=== PATIENT | female | born 2000 | race African-American/Black ===

== ENCOUNTER 2024-12-10 22:53 | Inpatient (IN) | payer MEDICAID ==
[~2024-12-10] VITALS: Ht 167.6 cm; Wt 128.8 kg
[2024-12-11 03:40] VITALS: BP 122/77; PULSE 80; RESP 18; TEMP 97.2; O2SAT 100
[2024-12-11] MEDS ORDERED: ACETAMINOPHEN 325 MG TABLET PO PRN (08:30)
[2024-12-11] MEDS ORDERED: ONDANSETRON 4 MG TABLET PO PRN (08:30)
[2024-12-11] MEDS ORDERED: MAGNESIUM HYDROXIDE SUSPENSION 30 ML UDCUP PO PRN (08:30)
[2024-12-11] MEDS ORDERED: OMEPRAZOLE 20 MG CAPSULE PO PRN (08:30)
[2024-12-11] MEDS ORDERED: BACITRACIN 28 GM OINTMENT TP PRN (08:30)
[2024-12-11] MEDS ORDERED: DOCUSATE SODIUM 100 MG CAPSULE PO PRN (08:30)
[2024-12-11] MEDS ORDERED: PETROLATUM,WHITE 28 GM JELLY TP PRN (08:30)
[2024-12-11] MEDS ORDERED: BENZOCAINE/MENTHOL [CEPACOL] LOZENGE PO PRN (08:30)
[2024-12-11] MEDS ORDERED: LOPERAMIDE HCL 2 MG CAPSULE PO PRN (08:30)
[2024-12-11] MEDS ORDERED: MAG HYDROX/ALUMINUM HYD/SIMETH ES 30 ML SUSPENSION UDCUP PO PRN (08:30)
[2024-12-11] MEDS ORDERED: ALBUTEROL SULFATE HFA 90 MCG/PUFF 8 GM INHALER IH PRN (08:30)
[2024-12-11 08:42] VITALS: BP 124/76; PULSE 100; RESP 17; TEMP 98.1; O2SAT 98
[2024-12-11 11:08] VITALS: BP 124/76; PULSE 78; RESP 17; TEMP 98.1; O2SAT 98
[2024-12-11 20:14] VITALS: BP 120/66; PULSE 88; RESP 18; TEMP 98.4; O2SAT 100
[2024-12-11] MEDS: LITHIUM CARBONATE 300 MG CAPSULE PO SCH (21:16)
[2024-12-11] MEDS: DIVALPROEX SODIUM 500 MG DR TABLET PO SCH (21:16)
[2024-12-12 04:06] LABS: HEPATITIS C AB (EIA) Non Reactive (Non Reactive)
[2024-12-12 08:32] LABS: PLATELET COUNT (AUTO) 355 K/uL (150-450); RED BLOOD CELL COUNT(AUTO) 4.45 MIL/uL (4.00-5.20); RED CELL DISTRIBUTION WIDTH 13.1 % (11.5-14.5); WHITE BLOOD COUNT (AUTO) 4.4 K/uL (4.5-11.0)
[2024-12-12 08:45] VITALS: BP 106/74; PULSE 92; RESP 16; TEMP 96.9; O2SAT 100
[2024-12-12 09:01] LABS: ASPARTATE AMINOTRANSFERASE 18 U/L (15-37); CALCIUM, TOTAL 8.6 mg/dL (8.8-10.5); CHOL/HDL RATIO 2.7 (3.9-5.7); CREATININE 0.95 mg/dL (0.60-1.30); GLOMERULAR FILTR. RATE CALC > 60 mL/min (>60); GLUCOSE,RANDOM 85 mg/dL (70-110); LDL CHOL (CALC.) 84 mg/dL (0-130); PHOSPHORUS 3.2 mg/dL (2.5-4.9); SODIUM SERUM 140 mmol/L (136-145); TOTAL PROTEIN, SERUM 6.9 g/dL (6.4-8.2); UREA NITROGEN, BLOOD 13 mg/dL (7-18)
[2024-12-12 20:22] VITALS: BP 117/71; PULSE 69; RESP 18; TEMP 97.9; O2SAT 100
[2024-12-12] MEDS: ZOLPIDEM TARTRATE 10 MG TABLET PO PRN (21:28)
[2024-12-13 08:26] VITALS: BP 115/73; PULSE 99; RESP 17; TEMP 98.4; O2SAT 100
[2024-12-13] MEDS: IBUPROFEN 600 MG TABLET PO PRN (13:01)
[2024-12-13 14:01] VITALS: BP 112/68; PULSE 89; RESP 16; TEMP 97.8; O2SAT 99
[2024-12-13 20:35] VITALS: BP 125/79; PULSE 87; RESP 18; TEMP 98.1; O2SAT 99
[2024-12-14 08:18] VITALS: BP 121/73; PULSE 99; RESP 18; TEMP 98.9; O2SAT 100
[2024-12-14 20:16] VITALS: BP 111/78; PULSE 88; RESP 19; TEMP 97.6; O2SAT 99
[2024-12-15 08:42] VITALS: BP 109/66; PULSE 94; RESP 17; TEMP 98.3; O2SAT 100
[2024-12-15 09:30] LABS: VALPROIC ACID 70.0 mcg/mL (50-100)
[2024-12-15 20:23] VITALS: BP 111/70; PULSE 79; RESP 18; TEMP 99.3; O2SAT 99
[2024-12-16] MEDS ORDERED: LITH300C3 PO (09:58)
[2024-12-16] MEDS ORDERED: DIVA-153 PO (09:59)
[2024-12-16 15:45] VITALS: BP 115/70; PULSE 84; RESP 18; TEMP 97.5; O2SAT 98
== END 2024-12-16 16:11 | disposition home or self-care (01) | DRG 753 ==
LOC: B2S 12-11 00:59
PROVIDERS: ADMIT Psychiatry & Neurology Psychiatry; ATTEND Psychiatry & Neurology Psychiatry
DX: F31.9 Bipolar disorder, unspecified (principal); R45.851 Suicidal ideations; E66.01 Morbid (severe) obesity due to excess calories; F41.9 Anxiety disorder, unspecified; Z68.42 Body mass index [BMI] 45.0-49.9, adult; K59.00 Constipation, unspecified; G47.00 Insomnia, unspecified; Z91.51 Personal history of suicidal behavior
CPT/HCPCS: 80053; 80061; 80164; 80178; 83036; 83735; 84100; 84443; 84703; 85025; 86803; 87340